=== PATIENT | female | born 1995 | race Caucasian/White ===

== ENCOUNTER 2022-02-20 11:34 | Outpatient (CLI) | payer OTHER, SELFPAY ==
[2022-02-20 14:21] LABS: Glucose* 88 mg/dL (60-115)
[2022-02-20 14:35] LABS: HDL Cholesterol* 56 mg/dL (>=50)
[2022-02-20 14:42] LABS: Cholesterol* 384 mg/dL (90-199); LDL Cholesterol Calculated 245 mg/dL (<100); Triglycerides* 416 mg/dL (40-149)
[2022-02-20 18:50] LABS: Chlamydia DNA Amplified* NOT DETECTED (No Detected); GC DNA Amplified* NOT DETECTED (No Detected)
[2022-02-21 17:45] LABS: Prolactin 6.2 ng/mL (2.8-29.2)
== END 2022-02-20 11:35 | disposition home or self-care (01) ==
PROVIDERS: PCP Pediatrics; Visit Provider Registered Nurse
DX: Z01.419 Encounter for gynecological examination (general) (routine) without abnormal findings (principal); N64.3 Galactorrhea not associated with childbirth; Z11.3 Encounter for screening for infections with a predominantly sexual mode of transmission; Z13.1 Encounter for screening for diabetes mellitus; Z13.6 Encounter for screening for cardiovascular disorders
CPT/HCPCS: 80061; 82947; 84146; 84443; 87491; 87591

== ENCOUNTER 2022-10-10 13:44 | Outpatient (CLI) | payer OTHER, SELFPAY | END 2022-10-10 13:45 | disposition home or self-care (01) | LOC: NFLDREF 13:46 | PROVIDERS: PCP Pediatrics; Visit Provider Registered Nurse | DX: Z01.419 Encounter for gynecological examination (general) (routine) without abnormal findings (principal); Z11.1 Encounter for screening for respiratory tuberculosis; Z11.3 Encounter for screening for infections with a predominantly sexual mode of transmission | CPT/HCPCS: 86480; 86735; 86762; 86765; 86787; 87341 ==

== ENCOUNTER 2022-10-19 10:13 | Outpatient (CLI) | payer OTHER, SELFPAY | END 2022-10-19 10:14 | disposition home or self-care (01) | LOC: NFLDREF 10:14 | PROVIDERS: PCP Pediatrics; Visit Provider Obstetrics & Gynecology | DX: L98.9 Disorder of the skin and subcutaneous tissue, unspecified (principal) | CPT/HCPCS: 87070 ==

== ENCOUNTER 2022-11-01 16:07 | Outpatient (CLI) | payer OTHER, SELFPAY | END 2022-11-01 16:08 | disposition home or self-care (01) | LOC: NFLDREF 16:08 | PROVIDERS: PCP Pediatrics; Visit Provider Family Medicine | DX: Z00.00 Encounter for general adult medical examination without abnormal findings (principal); E78.00 Pure hypercholesterolemia, unspecified | CPT/HCPCS: 80061 ==

== ENCOUNTER 2023-03-29 13:48 | Outpatient (CLI) | payer OTHER, SELFPAY ==
[2023-03-29 21:38] LABS: Chlamydia DNA Amplified* NOT DETECTED (No Detected); GC DNA Amplified* NOT DETECTED (No Detected)
== END 2023-03-29 13:49 | disposition home or self-care (01) ==
LOC: NFLDREF 13:49
PROVIDERS: PCP Pediatrics; Visit Provider Registered Nurse
DX: Z11.3 Encounter for screening for infections with a predominantly sexual mode of transmission (principal)
CPT/HCPCS: 87491; 87591

== ENCOUNTER 2023-04-04 16:26 | Outpatient (CLI) | payer BC, SELFPAY | END 2023-04-04 16:27 | disposition home or self-care (01) | PROVIDERS: Visit Provider Physician Assistant | DX: R30.0 Dysuria (principal) | CPT/HCPCS: 87086 ==

== ENCOUNTER 2023-10-23 10:24 | Outpatient (CLI) | payer MEDICAID, SELFPAY | END 2023-10-23 10:25 | disposition home or self-care (01) | LOC: NFLDREF 10-24 11:21 | PROVIDERS: PCP Family Medicine; Referring Provider Family Medicine; Visit Provider Registered Nurse | DX: Z01.419 Encounter for gynecological examination (general) (routine) without abnormal findings (principal); E78.2 Mixed hyperlipidemia; N91.2 Amenorrhea, unspecified; E78.00 Pure hypercholesterolemia, unspecified; F41.9 Anxiety disorder, unspecified; Z13.1 Encounter for screening for diabetes mellitus | CPT/HCPCS: 80061; 82947; 84443 ==